=== PATIENT | female | born 1960 | race Caucasian/White ===

== ENCOUNTER → 2020-09-24 | Outpatient (CLI) | payer BC ==
[~2020-09-24] MED LIST: ABILIFY 5 MG TAB5 M1 PO; AMBIEN 10 MG TA10 MG PO; ASPIRIN325 PO; COLACE 100 MG100 MG PO; EFFEXOR XR150 MG PO; ELIQUIS5 MG PO; OXYCODONE HCL 55 MG PO; PAROXETINE HCL10 MG PO; REXULTI2 MG PO; TRAMADOL 50 MG50 MG PO; VENLAFAXINE HCL75 M2 PO; XANAX 0.5 MG0.5 MG PO
[2020-09-24 09:45] LABS: ABSOLUTE BASOPHILS 0.1 thou/uL (0.0-0.2); ABSOLUTE EOSINOPHILS 0.3 thou/uL (0.0-0.7); ABSOLUTE LYMPHOCYTES 3.6 thou/uL (0.8-5.3); ABSOLUTE MONOCYTES 1.1 thou/uL (0.0-1.2); ABSOLUTE NEUTROPHILS 4.2 thou/uL (1.6-8.1); BASOPHILS 1.1 %; HEMATOCRIT 40.2 % (37.0-47.0); HEMOGLOBIN 13.5 gm/dL (12.0-15.0); LYMPHOCYTES 38.7 %; MCH 33.1 pg (26.0-34.0); MCHC 33.6 g/dL (28.0-37.0); MCV 98.6 fL (80.0-100.0); MONOCYTES 11.9 %; MPV 8.3 fl. (7.2-11.1); NUCLEATED RBCS 0 /100WBC; PLATELET COUNT* 389 thou/uL (150-400); POLYS 45.3 %; RBC 4.07 mil/uL (4.20-5.00); RDW-CV 12.8 % (10.5-14.5); WBC 9.3 thou/uL (4.0-11.0)
[2020-09-24 09:55] LABS: ALBUMIN 3.5 g/dL (3.4-5.0); ALKALINE PHOSPHATASE 74 U/L (46-116); ANION GAP 7 mmol/L (7-16); BUN 10 mg/dL (7-18); CALCIUM 8.8 mg/dL (8.5-10.1); CHLORIDE 107 mmol/L (98-107); CO2 29 mmol/L (21-32); CREATININE 0.6 mg/dL (0.6-1.3); GLUCOSE 69 mg/dL (70-99); POTASSIUM 3.6 mmol/L (3.5-5.1); SGOT 13 U/L (15-37); SGPT 19 U/L (30-65); SODIUM 143 mmol/L (136-145); TOTAL PROTEIN 6.9 g/dL (6.4-8.2)
[2020-09-24 09:56] LABS: TOTAL BILIRUBIN < 0.1 mg/dL (<0.1-1.0)
[2020-09-24 09:58] LABS: APTT 27.2 Seconds (25.0-31.3); INR 0.9; PROTIME 10.1 Seconds (9.20-11.50)
[2020-09-24 11:32] LABS: ESR (SEDRATE) 6 mm/hr (0-30)
--- NOTE | 2020-09-24 11:40 | EKG ---
[place] [address] ELECTROCARDIOGRAM REPORT Name: JAGDEEP GOMEZ Room: [facility]#: [id number] Admission: 09/24/20 Attend Phys: Ernst Schuster DO Discharge: Date of : 62 Date of Service: 09/24/20 1005 Report #: [id number] THIS REPORT FOR: //name// [facility] Test Date: 2020-09-24 Test Time: 10:05:18 Pat Name: JAGDEEP GOMEZ Department: Room: Gender: Generation Engineer: : 1960 Requested By: Ernst Schuster Order Number: [id number] Luana MD: Sylvain Robledo Measurements Intervals Wall Rate: 69 P: 34 WA: 143 QRS: 49 QRSD: 95 T: 38 QT: 411 QTc: 441 Interpretive Statements Sinus rhythm Compared to ECG 02/08/2019 09:27:09 No significant changes Electronically Signed On 09-24-2020 11:39:55 CLINICAL SUPERVISOR by Sylvain Robledo [email or web address] <ELECTRONICALLY SIGNED> By: Sylvain Robledo MD, [facility] 09/24/20 1139 1005 1005 Sylvain Robledo MD, FACC /EPI
== END ==
LOC: M.LAB 09-23 12:11
PROVIDERS: ATTEND Orthopaedic Surgery
DX: Z01.812 Encounter for preprocedural laboratory examination (principal); Z20.822 Contact with and (suspected) exposure to COVID-19; M17.12 Unilateral primary osteoarthritis, left knee; I49.9 Cardiac arrhythmia, unspecified

== ENCOUNTER 2020-09-29 05:15 | Observation (INO) | payer BC ==
[~2020-09-29] VITALS: Ht 160 cm; Wt 68.9 kg
--- NOTE | ~2020-09-29 | OP ---
[address] [address] OPERATIVE REPORT Name: JAGDEEP GOMEZ Room: [address] M.RSeema#: [id number] Admission: 09/29/20 Attend Phys: Ernst Schuster DO Discharge: Date of : 62 Report #: [id number] THIS REPORT FOR: cc: Jerry Boss Ahmad W. DO ~ Ernst Schuster DO DICTATED BY: Matt Gaming DO DATE OF SERVICE: 09/29/2020 PREOPERATIVE DIAGNOSIS: Left knee degenerative joint disease. POSTOPERATIVE DIAGNOSIS: Left knee degenerative joint disease. PROCEDURE PERFORMED: Left total knee arthroplasty utilizing [employer] Vanguard total knee arthroplasty system with the following components: 1. A 62.5 femoral component. 2. A 67 tibial component. 3. A 31 mm patella. 4. A 12 mm anterior stabilized polyethylene. SURGEON: Ernst Schuster DO ASSISTANTS: 1. Monica Parry PA-C 2. Matt Gaming DO ANESTHESIA: Spinal with regional nerve block. ANTIBIOTICS: A 2 g Ancef IV preoperatively. ESTIMATED BLOOD LOSS: 150 mL. COMPLICATIONS: None. SPECIMENS: None. CONDITION: The patient is stable to PACU. INDICATIONS FOR PROCEDURE: The patient is a pleasant 59-year-old female who was seen and examined in the outpatient orthopedic clinic with regards to left knee pain. Radiographs were obtained in the office, which demonstrated advanced degenerative joint disease with joint space narrowing, osteophytic lipping and subchondral sclerosis. She tried and failed conservative treatment of activity modification, anti-inflammatories and intra-articular steroid injections. [facility] [address] [place] [address] OPERATIVE REPORT Name: JAGDEEP GOMEZ Room: [address] M.R.#: [id number] Admission: 09/29/20 Attend Phys: Ernst Schuster DO Discharge: Date of : 62 Report #: [id number] knee arthroplasty was discussed in detail with the patient including the risks, benefits, alternatives and complications. The patient did wish to proceed. DESCRIPTION OF PROCEDURE: The patient was seen and examined in the preoperative holding area. The correct operative extremity was marked. Written consent was obtained. The patient was then transferred to the operating room. She was given spinal anesthesia. She was then placed in the supine position on the operating room table. A well-padded tourniquet was placed in the left thigh, which was not inflated during the procedure. Left lower extremity was then prepped and draped in usual sterile fashion. Timeout was performed to verify the correct patient, procedure and operative extremity and all were in agreement. Procedure then began with a standard midline incision. Sharp dissection was carried down to the level of the joint capsule. Medial parapatellar arthrotomy was then performed with a new knife. Medial periosteal sleeve was developed off the proximal tibia. The patella was everted and the patellar fat pad was excised. Anterior horns of medial and lateral menisci were excised at that time. Next, the femoral canal was opened with the drill and the intramedullary femoral guide was inserted. This was pinned into position at 5 degrees of valgus measuring an 11 mm cut off the distal femur. This was performed in the standard fashion. Attention was then turned to the tibia. Extramedullary tibial guide was placed and measuring 10 mm off the high side. This was pinned into position and the proximal tibial cut was performed in the standard fashion. All excess bone was removed. The knee was then taken out into extension and an extension spacer block was inserted. The knee was noted to have full range of motion as well as balance. The knee was then placed back into the flexed position and the tibia was sized. This was sized to a size 62.5 femur. This was then drilled into 3 degrees of external rotation in relation to the posterior condylar axis. The 4-in-1 cutting block was then placed. The anterior, posterior, chamfer cuts were performed in the standard fashion. All excess bone was removed. The remainder of the medial and lateral menisci were then excised. The tibia was trialed. The trial femur was then inserted. Trial poly was inserted and the knee was once again taken through range of motion and full range of motion and excellent stability. Attention was then turned to the patella, which was cut in a freehand fashion. This was measured to size 31, which was then drilled and the trial button was inserted. The knee was taken through range of motion and there was noted to be excellent patellar tracking. The lug holes were then drilled. Next, attention was turned to the tibia, which was reamed and broached in the standard fashion. All trial components were removed. Knee was thoroughly irrigated with pulsatile lavage. Knee was injected with 120 mL of orthopedic cocktail. Cement was mixed on the back table. Final components were then cemented into position in the standard fashion. All excess cement was removed. Final size 12 mm anterior stabilized polyethylene component was inserted. The knee was once again taken through range of motion and noted to have excellent stability and full range of motion. The knee was again thoroughly irrigated with pulsatile lavage. [place] 1 [place] [address] OPERATIVE REPORT Name: JAGDEEP GOMEZ Room: [facility] Antonella Austin#: [id number] Admission: 09/29/20 Attend Phys: Ernst Schuster DO Discharge: Date of : 62 Report #: [id number] vancomycin powder was inserted into the knee. The capsule was then closed with #1 Vicryl in an interrupted bzhbmv-ju-yhhew fashion followed by running #1 Stratafix. A 2-0 Monocryl was used subcutaneously followed by running 3-0 Stratafix and skin glue. Sterile dressing was applied. The patient was awakened from anesthesia and transferred to PACU in stable condition. By: 1840 1911Roberestiven Schuster DO /jeremías
[~2020-09-29 05:15] MED LIST changes: -ASPIRIN325 PO; -COLACE 100 MG100 MG PO; -ELIQUIS5 MG PO; -OXYCODONE HCL 55 MG PO; -TRAMADOL 50 MG50 MG PO
[2020-09-29 12:25] VITALS: BP 124/70
[2020-09-29 15:50] VITALS: BP 103/56
[2020-09-29 20:00] VITALS: BP 106/52
[2020-09-30] VITALS: BP 110/62
[2020-09-30 04:12] LABS: HEMATOCRIT 34.1 % (37.0-47.0); HEMOGLOBIN 11.2 gm/dL (12.0-15.0)
--- NOTE | 2020-09-30 05:45 | NUR ---
PATIENT SLEPT WELL DURING THIS SHIFT. PT ABLE TO REPOSITION HERSELF IN BED. DSG ON LT KNEE C/D/I; ICE PACK IN PLACE. PT GIVEN OXY IR 10MG X1 DURING THIS SHIFT. PT VOIDS PER BEDPAN CLEAR YELLOW URINE. PT WITH FLUIDS INFUSING PER DR ORDER. PT IS ON ROOM AIR WITH CAPNO. CAPNO ALARMED VERY FEW TIMES DURING THIS SHIFT. FREQUENTLY USED ITEMS AND CALL LIGHT WITHIN REACH. WILL CONTINUE TO MONITOR.
[2020-09-30 07:30] VITALS: BP 131/69
[2020-09-30 09:30] VITALS: BP 131/69
--- NOTE | 2020-09-30 09:39 | NUR ---
RECIEVED O.T. ORDERS. WILL DEFER TO P.T. AT THIS TIME. PLEASE ORDER FURTHER O.T. SERVICES IF NEEDED.
[2020-09-30] MEDS ORDERED: OXYCODONE HCL 55 MG PO (11:14)
[2020-09-30] MEDS ORDERED: COLACE 100 MG100 MG PO (11:14)
[2020-09-30] MEDS ORDERED: TRAMADOL 50 MG50 MG PO (11:14)
[2020-09-30] MEDS ORDERED: ELIQUIS5 MG PO (11:14)
--- NOTE | 2020-09-30 11:40 | NUR ---
CM CALLED IN PRESCRIPTION FOR ELIQUIS WRITTEN TO HER PHARMACY[facility] [place]. PLANNED TO CALL BACK FOR COPAY. RN ATTEMPTED TO CALL BACK BUT NO ANSWER AT PHARMACY. PTS HERE AND THEY WANTED TO BE DISCHARGED. EUNICE KEARNS DIRECTED THEM ON WHAT TO DO IF ELIQUIS TOO EXPENSIVE. PT.HAS A WALKER AT HOME FOR HOME USE. WILL BE WITH HER AT HOME TO ASSIST NEEDED. SHE CHOSE TO DO OUTPT. THERAPY.
[2020-09-30 11:42] VITALS: BP 131/69
[2020-09-30] MEDS ORDERED: ASPIRIN325 PO (11:44)
[2020-09-30 12:52] VITALS: BP 131/69
--- NOTE | 2020-09-30 12:52 | NUR ---
PT GIVEN DISCHARGE INFORMATION, CARE NOTES, AND PRESCRIPTIONS. BLOOD THINNER CALLED INTO PHARMACY, THEIR LINES WENT DOWN AND WOULD NOT ANSWER OUR CALLS TI FIND OUT HOW MUCH BLOOD THINNER WAS. PATIENT INSTRUCTED TO TAKE [address] IF BLOOD THINNER TO EXPENSIVE. IV REMOVED. PT EDUCATED ON ON Q PUMP. HOURLY ROUNDING COMPLETED. PT LEFT VIA WHEELCHAIR WITH NURSING STAFF TO HOME WITH OUTPATIENT THERAPY.
== END 2020-09-30 12:50 | disposition home or self-care (01) ==
LOC: M.PRE 05:15 → M.TBA 09:52 → M.3W 09:52 → M.TBA 09:52 → M.PRE 12:34 → M.3W 15:56
PROVIDERS: Orthopaedic Surgery; ADMIT Internal Medicine; ATTEND Internal Medicine
DX: M17.12 Unilateral primary osteoarthritis, left knee (principal); J44.9 Chronic obstructive pulmonary disease, unspecified; F17.210 Nicotine dependence, cigarettes, uncomplicated; Z79.899 Other long term (current) drug therapy